=== PATIENT | female | born 1990 | race Hispanic/Latino ===

== ENCOUNTER 2023-02-09 14:45 | Emergency (ER) | payer SELFPAY ==
[2023-02-09 15:00] VITALS: BP 109/57; PULSE 57; RESP 16; TEMP 37; O2SAT 100
--- NOTE | 2023-02-09 15:27 | ED.GENADULT ---
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 No midline tenderness. No loss retention of bowel or bladder. No abdominal pain. No chest pain. History of C injury to the right femur. Has taken ibuprofen Denies abdominal pain. No urinary symptoms. Treatments prior to arrival: NSAID Related Data Allergies Allergy/AdvReac Type Severity Reaction Status Date / Time No Known Allergies Allergy Verified 02/09/23 15:08 Review of Systems Review of Systems: All systems reviewed & are unremarkable except as noted in HPI and below Constitutional: Constitutional: Reports no additional constitutional complaints Eyes: Eyes: Reports no additional eye complaints ENT: Reports system reviewed and no additional complaints, except as documented Cardiovascular: Cardiovascular: Reports no additional cardiovascular complaints, Denies chest pain and Denies dyspnea Respiratory: Respiratory: Reports no additional respiratory complaints, Denies chest congestion, Denies cough and Denies dyspnea Gastrointestinal: Gastrointestinal: Reports no additional gastrointestinal complaints, Denies abdominal pain, Denies nausea and Denies vomiting Musculoskeletal: Musculoskeletal: Reports as per HPI and Reports back pain (Right lower) Integumentary/Breasts: Skin/Breast: Reports system reviewed and no additional complaints, except as docu Neurologic: Reports system reviewed and no additional complaints, except as documented Psychiatric: Psychiatric: Reports no additional psychiatric complaints Allergic/Immunologic: Allergic/Immunologic: Reports no additional allergic/immunologic complaints PMFSH Comments At the time of my signature, I reviewed and agree with the nursing past medical, surgical, social, and family history. There is no relevant family history pertinent to the patient complaint. Exam Const: General: cooperative, healthy appearing, comfortable, no acute distress, well developed, alert and well nourished Nutritional Appearance: well nourished Orientation/consciousness: patient oriented x3 Limitations: no limitations HENMT: Head: normal to inspection Ears: hearing grossly normal bilaterally and external ears normal Face/Nose/Sinus: Normal external nose present, Normal nares present, Normal nasal mucous membranes and turbinates present, normal facial exam and face symmetric Face and sinus: normal facial exam and face symmetric Eyes: General: appearance normal, both eyes and all related structures Alignment and Position: alignment normal Periorbital: periorbital findings normal Pupils: Equal, round and reactive pupils present EOM: EOMs intact bilaterally Neck: Neck: normal visual inspection, full ROM, no lymphadenopathy and no meningeal signs Chest: Chest palpation & inspection: normal inspection of the chest Resp: Effort & Inspection: normal respiratory effort and able to speak in complete sentences Auscultation: clear to auscultation bilaterally, no crackles, no rales, no rhonchi and no wheezes Cardio: Rate: regular rate Rhythm: regular rhythm GI: GI Palp: No abdominal tenderness and Yes Soft to palpation : General: Yes no CVA tenderness Back/Spine/Pelvis: Back: back tenderness (Right sciatic) Cervical Spine: cervical ROM normal Thoracic/Lumbar Spine: paraspinal muscle tenderness (Right lower lumbar), No thoracic spinal tenderness and No lumbar spinal tenderness Pelvis: no pain with anterior-posterior compression and no pain with lateral compression Sacroiliac joints: on the right tender to palpation Skin: General skin exam: normal color and no isidra
== END 2023-02-09 15:49 | disposition home or self-care (01) ==
PROVIDERS: Emergency Provider Nurse Practitioner
DX: M54.41 Lumbago with sciatica, right side (principal)
CPT/HCPCS: 99203; G0463

== ENCOUNTER 2023-02-16 14:53 | Emergency (ER) | payer SELFPAY ==
--- NOTE | ~2023-02-16 | XR_ITS ---
XR lumbar spine 2-3V DATE: 02/16/2023 16:03 INDICATION: Right sciatica pain TECHNIQUE: AP, lateral, coned lateral lumbosacral views COMPARISON: None FINDINGS: There is slight lumbar dextro scoliosis. Included lower thoracic and lumbar pedicles are in tact. No fracture or bone destruction or spondylolisthesis is evident. There is a L5 limbus vertebra. There is moderate loss of height at the L4-5 interspace. There may be mild loss at L1-2 and L2-3 interspaces. The sacroiliac joints are intact. IMPRESSION: Probable multilevel mild to moderate degenerative disc disease Reviewed, dictated and finalized at location L. EMBEDDED
[2023-02-16 14:56] VITALS: BP 121/73; PULSE 56; TEMP 36.6; O2SAT 100
[2023-02-16] MEDS: diazePAM (*CRX) 5 MG TABLET PO (15:52)
[2023-02-16] MEDS: KETOROLAC (*BKC) 60 MG/2 ML VIAL IM (15:52)
--- NOTE | 2023-02-16 17:33 | ED.LOWEXIN ---
HPI - Extremity Injury (Lower) General Chief Complaint: Extremity Injury, Lower Stated Complaint: sciatica pain Time Seen by Provider: 02/16/23 15:07 History of Present Illness HPI Narrative: patient is a 32-year-old female who presents ER with right-sided sciatica. Ongoing over last week. She was seen at an urgent care and prescribed prednisone as well as muscle relaxer without improvement. It is a sharp pain that goes down her buttock into the lateral aspect of her thigh she also feels a going down into her toes. No fevers or chills or sweats. No known trauma. No saddle anesthesia or difficulty with urination / defecation. Related Data Allergies Allergy/AdvReac Type Severity Reaction Status Date / Time No Known Allergies Allergy Verified 02/16/23 15:25 Review of Systems Constitutional: Constitutional: Denies chills and Denies fever(s) Musculoskeletal: Musculoskeletal: Reports back pain, Denies arthralgias and Denies joint swelling Neurologic: Denies focal weakness and Reports numbness PMFSH Past Medical History Medical History (Updated 02/16/23 @ 17:39 by Enrrique Knight MD) Healthy female adult Surgical History Surgical History (Updated 02/16/23 @ 17:39 by Enrrique Knight MD) History of surgery on lower extremity Right IM [facility] of Femur Exam Narrative: GENERAL: Well-appearing, well-nourished, and in no acute distress. HEAD: Normocephalic, atraumatic. ENT: Mucous membranes moist. CHEST: Clear to auscultation. No respiratory distress. HEART: Regular rate and rhythm. Normal peripheral pulses. back: No midline tenderness of T/ L-spine. Patient does have right SI tenderness that reproduces pain. Patient is able stand. EXTREMITIES: Normal range of motion. No edema. SKIN: Warm, dry, no rash. NEURO: Alert and oriented x3. PSYCH: Normal mood and affect. Course Course Emergency Course: Improvement pain with Valium and Toradol. Discussed outpatient treatment with Medrol Dosepak and Valium. Recommend establishing care with PCP because they can refer her to physical therapy as well as pain management or spine surgery if needed. Discussed imaging results. Vital Signs Vital signs: Vital Signs Temperature 97.8 F 02/16/23 14:56 Pulse Rate 56 L 02/16/23 14:56 Blood Pressure 121/73 02/16/23 14:56 Pulse Oximetry 100 02/16/23 14:56 Oxygen Delivery Room Air 02/16/23 14:56 Temperature 97.8 F 02/16/23 14:56 Pulse Rate 56 L 02/16/23 14:56 Blood Pressure 121/73 02/16/23 14:56 Pulse Oximetry 100 02/16/23 14:56 Oxygen Delivery Room Air 02/16/23 14:56 MDM - Extremity Injury (Lower) Lab Data Labs: UCG Bedside Result Negative Reference Range: Negative Imaging Data Radiologist's impression: ITS Impressions Lumbar Spine X-Ray 02/16/23 16:07 IMPRESSION: Probable multilevel mild to moderate degenerative disc disease Discharge Plan Discharge Clinical Impression: Sciatica Patient Disposition: Home, Self-Care Condition: Stable Instructions: Antibiotic Form, Sciatica (ED), Lower Back Exercises (ED) Additional Instructions: Return to the ER if you have increased pain in your back, you develop lower extremity weakness/numbness/paralysis, you have numbness or tingling in your private parts, or you are unable to control your ability to urinate/stool. Patient Language: Burkinan Prescriptions: No Action baclofen 10 mg tablet 10 mg PO TID PRN (Reason: muscle pain) Qty: 10 0RF ibuprofen 600 mg tablet 600 mg PO TID PRN (Reason: fever or pain) Qty: 30 0RF prednisone 50 mg tablet 50 mg PO DAILY Qty: 5 0RF Follow-up/Referrals: Guilherme Spring MD [Physician] - 1 Week PHYSICIAN,WASH HOUSE SUPERVISOR [Primary Care Provider] -
[2023-02-16 18:01] VITALS: BP 109/70; PULSE 52; RESP 17; O2SAT 100
== END 2023-02-16 18:04 | disposition home or self-care (01) ==
PROVIDERS: Emergency Provider Emergency Medicine
DX: M54.41 Lumbago with sciatica, right side (principal); R93.7 Abnormal findings on diagnostic imaging of other parts of musculoskeletal system
CPT/HCPCS: 72100; 81025; 96372; 99283; A9270; J1885

== ENCOUNTER 2023-02-17 09:25 | Emergency (ER) | payer SELFPAY ==
--- NOTE | ~2023-02-17 | CT_ITS ---
EXAMINATION: CT lumbar spine wo con DATE: 02/17/2023 13:13 INDICATION: Low back pain radiating down the right leg. TECHNIQUE: Computed tomography (CT) of the lumbar spine was performed without intravenous contrast. A utomated exposure control and iterative reconstruction technique were employed. The dose-length produ ct was 957.22 mGy-cm. COMPARISON: None FINDINGS: Degree lumbar dextrocurvature. Sagittal alignment is normal. Vertebral body heights are normal. No fr acture. L5 limbus vertebra with unfused apophyseal center along the anterior superior margin of the v ertebral body. Mild to moderate left-sided predominant disc height loss at L4-L5. Small bone island a t the left sacral ala at the level of S1. Paravertebral soft tissues are unremarkable. The following disc levels are specifically discussed: T10-T11 through L2-L3: The disc does not extend beyond the endplate margin. There is mild bilateral f acet joint osteoarthritis. There is no neural foraminal stenosis. There is no central canal stenosis. L3-L4: Disc is bulging. There is mild left and minimal right facet joint osteoarthritis. There is no neural foraminal stenosis. There is mild central canal stenosis. L4-L5: Disc is bulging, eccentric to the left. There is also a superimposed right paracentral disc ex trusion with disc material extending up to 7 mm caudal to the level of the level of the superior endp late of L5 which measures 12 mm left to right and 9 mm AP at the level of the superior endplate. Ther e is mild bilateral facet joint osteoarthritis. There is mild bilateral neural foraminal stenosis. Th ere is moderate central canal stenosis at the level of the disc space and moderate to severe stenosis more caudally at the level of the superior endplate of L5. This includes narrowing of the lateral re cesses, right greater than left with likely mass effect upon the traversing right L5 nerve root. L5-S1: Disc is bulging, eccentric to the left with superimposed small central disc protrusion. There is mild bilateral facet joint osteoarthritis. There is minimal bilateral neural foraminal stenosis. T here is mild central canal stenosis. IMPRESSION: 1. Mild to moderate lower lumbar spondylosis most notable for a prominent right paracentral disc extr usion at which results in moderate to severe central canal stenosis and prominent narrowing of the ri ght lateral recess likely impacting the traversing right L5 nerve root. Correlate clinically for righ t-sided muscle weakness of great toe extension and sensory change of the medial foot and great toe. Reviewed, dictated and finalized at location A. ET LIGHT SERVICER IMPRESSION: 1. Mild to moderate lower lumbar spondylosis most notable for a prominent right paracentral disc extrusion at which results in moderate to severe central michelle l stenosis and prominent narrowing of the right lateral recess likely impacting the traversing right L5 nerve root. Correlate clinically for right-sided muscl e weakness of great toe extension and sensory change of the medial foot and gre at toe.
--- NOTE | ~2023-02-17 | XR_ITS ---
XR femur RT min 2V DATE: 02/17/2023 13:20 INDICATION: Low back pain radiating down to right leg TECHNIQUE: AP and lateral views of right femur COMPARISON: None FINDINGS: There is an intramedullary joey of the right femur secured by 1 proximal and 2 distal throug h screws. There is old healed fracture deformity of the midshaft of the right femur without significa nt displacement regulation deformity. Normal alignment at the right and left sacroiliac joints, pubic symphysis, right hip and right knee. Right hip and knee joint spaces appear well preserved. No recent fracture or dislocation, periosteal reaction or bone destruction of the right femur. IMPRESSION: Status post ORIF right healed midshaft femoral fracture Reviewed, dictated and finalized at location B. OTIONAL MODEL
[2023-02-17 10:34] VITALS: BP 117/50; PULSE 54; RESP 16; TEMP 36.3; O2SAT 100
--- NOTE | 2023-02-17 11:40 | PC.NURSE ---
Pt states she was here yesterday and does not want a second preg test. The preg test from 02/16/23 was neg.
--- NOTE | 2023-02-17 12:16 | PC.NURSE ---
Called CT and made them aware pt had a neg bedside preg test yesterday and pt wishes to not have another today. Carolina made aware. CT stated they would have the pt sign a form.
[2023-02-17] MEDS: KETOROLAC 15 MG/ML VIAL (*BKC) IV PUSH (12:24)
[2023-02-17] MEDS: ACETAMINOPHEN 500 MG TABLET 1000 MG PO (12:25)
--- NOTE | 2023-02-17 12:26 | ED.BACK ---
HPI - Back Pain/Injury General Chief Complaint: Back Pain/Injury Stated Complaint: back pain Time Seen by Provider: 02/17/23 11:09 Source: patient Mode of arrival: EMS Limitations: language barrier (stratus parts interpreter) History of Present Illness HPI Narrative: This is a 32 year old female that presents to the ER for low back pain. Ongoing over the last week. Reports right sided low back pain that radiates into her right leg. The pain is worse with movement and relieved with rest. No recent injuries or trauma. She was seen in the ER yesterday for same. She did not take any pain medication today. She was give Morphine by EMS in route. Denies saddle anesthesia, or bowel/bladder incontinence. Related Data Allergies Allergy/AdvReac Type Severity Reaction Status Date / Time No Known Allergies Allergy Verified 02/17/23 11:30 Review of Systems Review of Systems: CONSTITUTIONAL: Denies fever SKIN: Denies rash MUSCULOSKELETAL: Reports back pain, joint pain, and myalgia. NEUROLOGIC: Denies numbness, or weakness. All systems reviewed & are unremarkable except as noted in HPI and below PMFSH Past Medical History Medical History (Updated 02/17/23 @ 14:31 by Carolina Yates PA-C) Healthy female adult Surgical History Surgical History (Updated 02/16/23 @ 17:39 by Enrrique Knight MD) History of surgery on lower extremity Right IM [facility] of Femur Social History Social History (Updated 02/17/23 @ 12:32 by Carolina Yates PA-C) Substance use: never Exam Narrative: GENERAL: Well-appearing, well-nourished, and in no acute distress. HEAD: Normocephalic, atraumatic. EYES: EOMI. CHEST: Clear to auscultation. No respiratory distress. No wheezes rales or rhonchi HEART: Regular rate and rhythm. No murmur heard. Normal peripheral pulses. BACK: No midline spinal tenderness EXTREMITIES: Normal range of motion. No edema. Strength equal in bilateral lower extremities (5/5). Normal DP pulses. Normal sensation SKIN: Warm, dry, no rash. NEURO: No focal deficits. Alert and oriented x3. PSYCH: Normal mood and affect Course Course Emergency Course: Patient updated on her workup. Resting comfortably. Agrees with plan of care Vital Signs Vital signs: Vital Signs Temperature 97.3 F L 02/17/23 10:34 Pulse Rate 54 L 02/17/23 10:34 Respiratory Rate 16 02/17/23 10:34 Blood Pressure 117/50 L 02/17/23 10:34 Pulse Oximetry 100 02/17/23 10:34 Temperature 97.3 F L 02/17/23 10:34 Pulse Rate 54 L 02/17/23 10:34 Respiratory Rate 16 02/17/23 10:34 Blood Pressure 117/50 L 02/17/23 10:34 Pulse Oximetry 100 02/17/23 10:34 MDM - Back Pain/Injury MDM Narrative Medical decision making narrative: patient presents to the emergency department for right-sided low back pain radiating down the right leg. She is afebrile and nontoxic appearing. She is neurologically intact. Denies any saddle anesthesia, bowel/bladder incontinence. CT lumbar spine shows mild to moderate lower lumbar spondylosis, notable for disc protrusion at L5/S1, likely cause of patient's symptoms. Once again patient is neurologically intact. Resting comfortably. Updated on her workup. Instructed on the importance of PCP follow up and given neurosurgery follow up as well. She was given warnings to return to the ER Differential Diagnosis Differential diagnosis: Likely lumbar radiculopathy, sciatica and strain of lumbar region Imaging Data Radiologist's impression: ITS Impressions Femur X-Ray 02/17/23 13:27 IMPRESSION: Status post ORIF right healed midshaft femoral fracture Lumbar Spine CT 02/17/23 13:39 IMPRESSION: 1. Mild to moderate lower lumbar spondylosis most notable for a prominent right paracentral disc extrusion at which results in moderate to severe central canal stenosis and prominent narrowing of the right lateral recess likely impacting the traversing right L5 nerve root. Correlate clinically for right-sided m
== END 2023-02-17 15:12 | disposition home or self-care (01) ==
PROVIDERS: Emergency Provider Physician Assistant
DX: M51.36 Other intervertebral disc degeneration, lumbar region (principal); M54.41 Lumbago with sciatica, right side; M47.816 Spondylosis without myelopathy or radiculopathy, lumbar region
CPT/HCPCS: 72131; 73552; 96374; 99284; A9270; J1885

== ENCOUNTER 2023-07-14 12:39 | Emergency (ER) | payer SELFPAY ==
--- NOTE | ~2023-07-14 | US_ITS ---
EXAMINATION: US OB <= 14 weeks fetus INDICATION: Early , lower abdominal pain TECHNIQUE: Sonography of the pelvis was performed by transabdominal and transvaginal techniques. COMPARISON: None. RESULT: Uterus: 8.4 x 3.9 x 4.3 cm. Anteverted. Homogenous myometrium. Intrauterine gestational sac: Single present. Mean Sac Diameter: 0.52 cm, corresponding gestational age 5 week 2 days. Yolk sac: Not visualized. Embryo: Not seen. Subgestational hematoma: Absent . Right ovary: 1.9 x 0.6 x 2.0 cm. Vascular flow is present. No adnexal mass. Left ovary: 4.2 x 1.7 x 3.2 cm. Vascular flow is present. 2 cm isoechoic ovarian lesion with surro unding vascular flow, partially obscured by bowel gas in the endovaginal images. Pelvis free fluid: None. IMPRESSION: Intrauterine gestation of uncertain viability, likely due to early gestational age. Estimated Gestational Age: 5 weeks, 2 days by mean gestational sac diameter. WENDY by ultrasound 2024. Likely 2 cm hemorrhagic or involuting left ovarian corpus luteal cyst, partially visualized. Recommen d attention follow-up studies. Reviewed, dictated and finalized at location K. IMPRESSION: Intrauterine gestation of uncertain viability, likely due to early gestational age. Estimated Gestational Age: 5 weeks, 2 days by mean gestational sac diameter. E DD by ultrasound 03/13/2024. Likely 2 cm hemorrhagic or involuting left ovarian corpus luteal cyst, partiall y visualized. Recommend attention follow-up studies.
[2023-07-14 12:45] VITALS: BP 114/69; PULSE 63; RESP 20; TEMP 36.5; O2SAT 100
--- NOTE | 2023-07-14 12:49 | ED.ABDPAIN ---
HPI - Abdominal Pain General Chief Complaint: Abdominal Pain <Carolina Yates PA-C - Last Filed: 07/14/23 18:10> Stated Complaint: abdominal pain <Carolina Yates PA-C - Last Filed: 07/14/23 18:10> Time Seen by Provider: 07/14/23 12:49 <Carolina Yates PA-C - Last Filed: 07/14/23 18:10> Focused HPI: This is a 32-year-old female that presents to the emergency department for pelvic pain. Ongoing over the last week. Reports today she had a positive test which prompted her to be seen. Also endorses some dysuria. GENERAL: Well-appearing, well-nourished, and in no acute distress. HEAD: Normocephalic, atraumatic. CHEST: Clear to auscultation. ?No respiratory distress. HEART: Regular rate and rhythm.? NEURO: ?Alert and oriented x3. Patient screened in triage and initial orders placed.? ?Additional care and disposition to be based upon?diagnostic testing and treatment. <Carolina Yates PA-C - Last Filed: 07/14/23 18:10> History of Present Illness HPI narrative: 32-year-old female presenting to the emergency department for evaluation for positive test that resulted positive this morning. Patient denies any vaginal bleeding vaginal discharge. Patient does have some lower abdominal pain. Patient does report pain with urination. Patient has prior history of ectopic and prior history of miscarriage <John Red MD - Last Filed: 07/14/23 19:16> Related Data Allergies/Adverse Reactions: Allergies Allergy/AdvReac Type Severity Reaction Status Date / Time No Known Allergies Allergy Verified 07/14/23 12:52 <Carolina Yates PA-C - Last Filed: 07/14/23 18:10> Review of Systems Review of Systems: CONSTITUTIONAL: Denies fever GASTROINTESTINAL: Reports abdominal pain. Denies vomiting GENITOURINARY: Reports dysuria <Carolina Yates PA-C - Last Filed: 07/14/23 18:10> All systems reviewed & are unremarkable except as noted in HPI and below <Carolina Yates PA-C - Last Filed: 07/14/23 18:10> PMFSH Past Medical History Medical History: Medical History (Updated 07/14/23 @ 18:10 by Carolina Yates PA-C) Healthy female adult <Carolina Yates PA-C - Last Filed: 07/14/23 18:10> Surgical History Surgical History: Surgical History (Updated 02/16/23 @ 17:39 by Enrrique Knight MD) History of surgery on lower extremity Right IM [facility] of Femur <Carolina Yates PA-C - Last Filed: 07/14/23 18:10> Social History Social History: Social History (Updated 02/17/23 @ 12:32 by Carolina Yates PA-C) Substance use: never <Carolina Yates PA-C - Last Filed: 07/14/23 18:10> Exam Narrative: GENERAL: Well-appearing, well-nourished, and in no acute distress. HEAD: Normocephalic, atraumatic. EYES: EOMI. CHEST: Clear to auscultation. No respiratory distress. No wheezes rales or rhonchi HEART: Regular rate and rhythm. No murmur heard. Normal peripheral pulses. ABDOMEN: Soft, nondistended, normal active bowel sounds. Mild suprapubic tenderness EXTREMITIES: Normal range of motion. No edema. SKIN: Warm, dry, no rash. NEURO: No focal deficits. Alert and oriented x3. PSYCH: Normal mood and affect <Carolina Yates PA-C - Last Filed: 07/14/23 18:10> Course Vital Signs Vital signs: Vital Signs Temperature 97.7 F 07/14/23 12:45 Pulse Rate 63 07/14/23 12:45 Respiratory Rate 20 07/14/23 12:45 Blood Pressure 114/69 07/14/23 12:45 Pulse Oximetry 100 07/14/23 12:45 Oxygen Delivery Room Air 07/14/23 12:45 Temperature 97.7 F 07/14/23 12:45 Pulse Rate 80 07/14/23 18:16 Respiratory Rate 18 07/14/23 18:16 Blood Pressure 125/68 07/14/23 18:16 Pulse Oximetry 98 07/14/23 18:16 Oxygen Delivery Room Air 07/14/23 12:45 <Carolina Yates PA-C - Last Filed: 07/14/23 18:10> Vital Signs Temperature 97.7 F 07/14/23 12:45 Pulse Rate 63 07/14/23 12:45 Respiratory Rate 20 07/14/23
[2023-07-14 14:53] LABS: Basophils Percent Auto 0.2 % (0.2-1.2); Eosinophils Absolute Auto 0.2 K/mm3 (0-0.3); Eosinophils Percent Auto 2.5 % (0-4.4); Hematocrit 38.8 % (37.0-47.0); Immature Granulocyte Absolute 0.02 K/mm3 (0.00-0.031); Immature Granulocyte Percent A 0.2 % (0-0.5); Lymphocytes Absolute Auto 2.96 K/mm3 (0.9-3.2); Lymphocytes Percent Auto 32.7 % (18.3-44.2); Mean Corpuscular HGB Conc 33.5 g/dl (32-36); Mean Corpuscular Hemoglobin 30.6 pg (26-34); Mean Corpuscular Volume 91.3 fl (80-100); Mean Platelet Volume 10.8 fl (7.4-10.4); Monocytes Absolute Auto 0.6 K/mm3 (0.1-0.6); Monocytes Percent Auto 6.1 % (2.6-8.5); Neutrophils Absolute Auto 5.3 K/mm3 (1.3-6.7); Neutrophils Percent Auto 58.3 % (45.5-73.1); Platelet Count Result 193 k/mm3 (150-375); Red Blood Count 4.25 M/mm3 (4.2-5.4); Red Cell Distribution Width 12.5 % (11.5-14.5)
[2023-07-14 15:26] LABS: Appearance Urine Clear (Clear); Bacteria Urine 4+ /hpf; Bilirubin Urine Negative (Negative); Blood Urine Negative (Negative); Color Urine Yellow (Yellow); Glucose Urine UA Negative (Negative); Ketones Urine Trace mg/dL (Negative); Leukocyte Esterase Ur 1+ LEU/UL (Negative); Nitrate Urine Positive (Negative); Non Pathogenic Casts 0-2; Protein Urine Negative (Negative); RBC Urine 0-2 /hpf (0-2); Specific Grav Ur 1.019 (1.001-1.035); Squamous Epithelial Cell Urine Occasional /hpf (Few); Urobilinogen Urine 0.2 mg/dL (<2.0); WBC Urine 21-50 /hpf (0-3)
[2023-07-14 15:28] LABS: Alanine Aminotransferase 15 U/L (6-35); Albumin Level 4.5 g/dL (3.5-5.1); Alkaline Phosphatase 71 U/L (38-126); Anion Gap 6 mmol/L (4-12); Aspartate Amino Transferase 27 U/L (14-36); Bilirubin,Total 0.6 mg/dL (0.2-1.3); Blood Urea Nitrogen 9 mg/dL (7-17); Carbon Dioxide 23 mmol/L (22-30); Chloride 108 mmol/L (98-107); Estimated CRCL calculation 116 ml/min; Estimated Glomerular Filt Rate > 60; Glucose 89 mg/dL (65-110); Lipase 54 U/L (23-300); Potassium 3.5 mmol/L (3.4-5.0); Sodium 137 mmol/L (137-145)
[2023-07-14 15:30] LABS: Add Urine Microscopic? YES
[2023-07-14 16:30] VITALS: BP 123/75; PULSE 79; RESP 15; O2SAT 100
[2023-07-14 18:16] VITALS: BP 125/68; PULSE 80; RESP 18; O2SAT 98
== END 2023-07-14 18:17 | disposition home or self-care (01) ==
PROVIDERS: Physician Assistant; Emergency Provider Emergency Medicine
DX: O23.11 Infections of bladder in pregnancy, first trimester (principal); Z3A.01 Less than 8 weeks gestation of pregnancy
CPT/HCPCS: 36415; 76801; 80053; 81001; 81025; 83690; 84702; 85025; 87077; 87086; 87088; 87186; 96365; 99284; J0696

== ENCOUNTER 2023-08-04 16:18 | Outpatient (CLI) | payer MEDICAID, SELFPAY ==
--- NOTE | ~2023-08-04 | US_ITS ---
EXAMINATION: US OB <= 14 weeks fetus DATE: 08/04/2023 16:59 INDICATION: Confirmation of viability during first trimester of TECHNIQUE: Real-time pelvic ultrasound utilizing both a transvaginal and transabdominal probe was pe rformed. The interpreting radiologist was not present for the study. COMPARISON: 07/14/2023 FINDINGS: The uterus measures 10.5 x 4.8 x 6.4 cm. There is an intrauterine gestational sac. A yolk sac and fe juan pole are identified. The crown rump length measures 1.6 cm, which correlates with an estimated ge stational age of 8 weeks and 0 days. heart motion is identified measuring 157 beats per minute (bpm) by M-mode Doppler. The right ovary measures 2.1 x 2.1 x 1.9 cm. The left ovary measures 3.2 x 2.0 x 2.1 cm. 2.0 cm essen tially anechoic likely corpus luteum cyst in the left ovary. Vascular flow identified at both ovaries on color Doppler. There is no free fluid in the pelvis. IMPRESSION: 1. Single living fetus with heart rate of 157 bpm. 2. Gestational age by ultrasound of 8 weeks 0 day(s) +/- 5 day(s) with ultrasound estimated date of delivery (WENDY) of 03/15/2024. Reviewed, dictated and finalized at location A. IMPRESSION: 1. Single living fetus with heart rate of 157 bpm. 2. Gestational age by ultrasound of 8 weeks 0 day(s) +/- 5 day(s) with ultraso und estimated date of delivery (WENDY) of 03/15/2024.
== END 2023-08-04 16:19 | disposition home or self-care (01) ==
PROVIDERS: Visit Provider Advanced Practice Midwife
DX: O36.80X0 Pregnancy with inconclusive fetal viability, not applicable or unspecified (principal); Z3A.08 8 weeks gestation of pregnancy
CPT/HCPCS: 76801

== ENCOUNTER 2023-11-08 12:47 | Outpatient (CLI) | payer MEDICAID, SELFPAY ==
--- NOTE | ~2023-11-08 | US_ITS ---
COMPLETE AND LIMITED MATERNAL ULTRASOUND (Doppler ultrasound interrogation techniques used as n eeded for this exam.) Ordering provider: Billy Huston History: . Routine . Comparison: None. Findings: : Single intrauterine fetus with heart rate measured at 135 bpm which is within normal limits. Longitudinal lie. Vertex presentation. --SCREENING OF ANATOMY: Heart (4 chambers): Seen and unremarkable. Brain survey: Unremarkable. The cerebral ventricles, cerebellum, cisterna magna, and the nuchal fold are also redemonstrated and appear normal. Cerebellum measures 2 cm. Cisterna magna measures 0.5 cm. Lateral ventricle measures 0.5 cm. Abdomen: Unremarkable. Diaphragm: Normal. STOMACH: Normal Cord insertion: Unremarkable. 3 vessel cord: Present and unremarkable. Bladder: Unremarkable. Kidneys: Unremarkable. Spine: Unremarkable. Gender: Female. -- BIOMETRICS: BPD: 50.6 mm = 21 weeks 2 days. HC: 196.5 mm = 21 weeks and 6 days. FL: 36.8 mm = 21 weeks and 5 days. AC: 169.4 mm = 22 weeks. HC/AC: 1.16. FL/BPD: 72.73. FL/AC: 21.72. Mean US age is 21 weeks 5 days For an WENDY on March 15, 2024. Extrapolated weight is 452.5 gm. EFW/GP: 65.1%. Three vessel cord is seen. Amniotic fluid volume is subjectively within normal limits. The AURORA is 13 cm. 5th percentile is 9.7 cm. 95th percentile areas 21.6 cm. The largest pocket measures 3.8 cm. The placenta is anterior. No evidence for significant placental anomalies including placenta previa. The placenta is about 6 cm from the cervix. MATERNAL: unremarkable limited maternal ultrasound. IMPRESSION: UNREMARKABLE COMPLETE AND LIMITED MATERNAL US. Reviewed, dictated and finalized at location A.
== END 2023-11-08 12:48 | disposition home or self-care (01) ==
LOC: ANHIMG 12:48
DX: Z34.92 Encounter for supervision of normal pregnancy, unspecified, second trimester (principal)
CPT/HCPCS: 76805